=== PATIENT | female | born 1980 | race Caucasian/White ===

== ENCOUNTER 2020-05-31 16:27 | Outpatient (CLI) | payer BC, SELFPAY | END 2020-05-31 16:28 | disposition home or self-care (01) | LOC: CHSLAB 16:31 | PROVIDERS: PCP Family Medicine Adolescent Medicine; Visit Provider Obstetrics & Gynecology Gynecology | DX: R30.0 Dysuria (principal) | CPT/HCPCS: 87077; 87086; 87088; 87186 ==

== ENCOUNTER 2025-04-21 09:13 | Emergency (ER) | payer BC, SELFPAY ==
[2025-04-21 09:13] VITALS: BP 102/66; PULSE 78; RESP 20; TEMP 36.7; O2SAT 98
--- NOTE | 2025-04-21 09:15 | ED_ITS ---
HPI - URI/Sore Throat General Chief Complaint: Upper Respiratory Infection Stated Complaint: upper resp Source: patient Mode of arrival: ambulatory Limitations: no limitations History of Present Illness HPI Narrative: Patient is a 44-year-old female who just arrived from [place] last night back to this area. She was on an airplane for long period of time. She started to have upper respiratory complaints such as cough and congestion and headache yesterday. Symptoms more so started this morning. She has a sore throat. She has baseline low blood pressure. MD elicited complaint: cough, sore throat and nasal congestion Pertinent past history: other ( None) Onset (ago): day(s) (2) Consistency: constant Severity: mild Pain scale (0-10): 1 Description of mucous: clear Able to tolerate fluids by mouth: Yes Exacerbating factors: nothing Relieving factors: nothing Context: sick contacts ( on airplane) and recent travel Associated symptoms: myalgias, headache ( some neck pain), sore throat and other ( patient said symptoms are slightly better at this time in the emergency room) Treatments prior to arrival: none Related Data Home Medications ?Medication ?Instructions ?Recorded ?Confirmed ?Last Taken ?Type valacyclovir 1 gram tablet 500 mg PO DAILY 12/26/24 12/26/24 Unknown History Allergies Allergy/AdvReac Type Severity Reaction Status Date / Time No Known Allergies Allergy Verified 04/21/25 09:14 Review of Systems Review of Systems: All systems reviewed & are unremarkable except as noted in HPI and below Constitutional: Constitutional: Reports no additional constitutional complaints Eyes: Eyes: Reports no additional eye complaints ENT: Reports system reviewed and no additional complaints, except as documented Cardiovascular: Cardiovascular: Reports no additional cardiovascular complaints Respiratory: Respiratory: Reports no additional respiratory complaints Gastrointestinal: Gastrointestinal: Reports no additional gastrointestinal complaints Genitourinary: Genitourinary: Reports no additional female genitourinary complaints Musculoskeletal: Musculoskeletal: Reports no additional musculoskeletal complaints Integumentary/Breasts: Skin/Breast: Reports system reviewed and no additional complaints, except as docu Neurologic: Reports system reviewed and no additional complaints, except as documented Psychiatric: Psychiatric: Reports no additional psychiatric complaints Endocrine: Endocrine: Reports no additional endocrine complaints Hematologic/Lymphatic: Hematologic/Lymphatic: Reports no additional hematologic/lymphatic complaints Allergic/Immunologic: Allergic/Immunologic: Reports no additional allergic/immunologic complaints [facility] Social History Social History Smoking status: Never smoker Exam Const: General: ill appearing Nutritional Appearance: well nourished Orientation/consciousness: patient oriented x3 Limitations: no limitations HENMT: Head: normal to inspection Ears: external ears normal Face/Nose/Sinus: Normal external nose present Eyes: Conjunctivae: conjunctivae normal Pupils: Equal, round and reactive pupils present EOM: EOMs intact bilaterally Neck: Neck: normal visual inspection Chest: Chest palpation & inspection: normal inspection of the chest Resp: Effort & Inspection: normal respiratory effort and not labored Auscultation: clear to auscultation bilaterally and no crackles Cardio: Rate: regular rate Rhythm: regular rhythm Heart sounds: no murmurs GI: Inspection: non-distended GI Palp: Yes Soft to palpation and No Tenderness to palpation present (GI) Auscultation: normal bowel sounds : General: Yes bladder normal to palpation Back/Spine/Pelvis: Back: no CVA tenderness Skin: General skin exam: normal color Rashes: no rashes Wounds: no wounds Neuro: General: patient oriented x3, moves all extremities, no meningeal signs, no focal motor deficits and CN's II-XI intact bilaterally Cranial nerves: Yes Nystagmus not present Speech: normal speech Other: No neck rigidity Extrem: General: normal to inspection Psych: Mental Status: mental status grossly normal Affect: normal affect Attitude: cooperative Course Vital Signs Vital signs: Vital Signs Temperature 36.7 C 04/21/25 09:13 Pulse Rate 78 04/21/25 09:13 Respiratory Rate 20 04/21/25 09:13 Blood Pressure 102/66 04/21/25 09:13 Pulse Oximetry 98 04/21/25 09:13 Oxygen Delivery Room Air 04/21/25 09:13 Temperature 36.7 C 04/21/25 09:13 Pulse Rate 98 04/21/25 10:32 Respiratory Rate 20 04/21/25 10:32 Blood Pressure 96/61 L 04/21/25 10:32 Pulse Oximetry 100 04/21/25 10:32 Oxygen Delivery Room Air 04/21/25 10:32 MDM - URI/Sore Throat MDM Narrative Medical decision making narrative: patient is a 44-year-old female with upper respiratory type complaints since yesterday. She has been traveling since yesterday evening from [place]. We will do a strep and a COVID panel. Lab Data Attestation: I reviewed the patient's lab results. Labs: Lab Results 04/21/25 Range/Units 09:15 Influenza A (RT-PCR) Negative (Negative) Influenza B (RT-PCR) Negative (Negative) RSV (RT-PCR) Negative (Negative) SARS-CoV-2 RNA (RT-PCR) Positive A (Negative) Group A Strep (PCR) Not detected (Negative) Discharge Plan Discharge Clinical Impression: COVID-19 Patient Disposition: Home Condition: Stable Instructions: COVID-19 (Coronavirus Disease 2019) (ED) Additional Instructions: Please secluded yourself from outside environment and other people for 3-5 days. Make sure you do not have a fever and her feeling better to go out in public. Use Tylenol and ibuprofen as needed. Patient Language: Khmer Prescriptions: No Action valacyclovir 1 gram tablet 500 mg PO DAILY Follow-up/Referrals: Jocelyne Min, MACKENZIE, LDN [Dietitian/Abrasive Grinder] - Time of Disposition: 10:31
--- OUTSIDE RECORDS SUMMARY | 2025-04-21 09:18 | XMS_ITS | Clinical Summary ---
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 Dense breast tissue on mammogram 09/16/2019 Microcalcification of left breast on mammogram 0 08/18/2019 Usual hyperplasia of lactiferous duct, 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 Fibrocystic changes of right breast 05/24/2019 Resolved Problems Problem Noted Date Diagnosed Date Resolved Date Abnormal MRI, breast 05/05/2019 019 Breast signs and symptoms 05/05/2019 Abnormal mammogram 03/31/2019 9 Abnormal ultrasound of breast 03/31/2019 05/24/2019 Social History Tobacco Use Types Packs/Day Years Used Date Smoking Tobacco: Never Smokeless Tobacco: Never Alcohol Use Standard Drinks/Week Comments Yes 0 (1 standard drink = 0.6 oz pur e alcohol) Comments No Sex and Gender Information Value Date Recorded Sex Assigned at Not on file Legal Sex Female 9:15 AM CDT Gender Identity Not on file Sexual Orientation Not on file Last Filed Vital Signs Vital Sign Reading Time Taken Comments Blood Pressure 109/75 09/16/2019 1:16 PM CDT Pulse 92 09/16/2019 1:16 PM CDT Temperature 36.8 C (98.2 F) 09/16/2019 1:16 PM CDT Respiratory Rate - - Oxygen Saturation 98% 09/16/2019 1:16 PM CDT Inhaled Oxygen Concentration - - Weight 65.6 kg (144 lb 9.6 oz) 09/16/2019 1:16 P M CDT Height 167.6 cm (5' 6) 09/16/2019 1:16 PM CDT Body Mass Index 23.34 09/16/2019 1:16 PM CDT Plan of Treatment Health Maintenance Due Date Last Done Comments DTAP/TDAP/TD VACCINES (1 - Tdap) 1997 HEPATITIS B VACCINES (1 of 3 - 19+ 3-dose series) 1997 HPV/Cotest (21-29) 1999 CERVICAL CANCER SCREENING 2008 HPV/Cotest (30-65) 2008 PAP SMEAR 2008 BREAST CANCER SCREENING 08/04/2020 08/04/20 19, 02/03/2019 COLORECTAL SCREENING 2023 Colorectal Cancer Screening 2023 FIT-DNA Q 3 years 2023 FIT/FOBT Q 1 year 2023 Flex Sig/CT Colonography Q 5 years 2023 INFLUENZA VACCINE (#1) 2024 HPV VACCINES Aged Out No longer eligi ble based on patient's age to complete this topic Procedures Procedure Name Priority Date/Time Associated Diagnosis Comments MAMMO DIAG UNI LEFT 3D EDUARDA W OR WO CAD Routine 08/04/2019 Abnormal mammogram from Last 3 Months or Most Recently Relevant to Health Maintenance Results * MAMMO DIAG UNI LEFT 3D EDUARDA W OR WO CAD (08/04/2019) Anatomical Region Laterality Modality Breast Left Mammography Cinthia Geiger DO MAMMO ORDERABLES Edited Res ult - Final from Last 3 Months or Most Recently Relevant to Health Maintenance Insurance BCBS BLUE ACCESS/TRUE BLUE PPO Care Teams Rotary Envelope Machine Operator Relationship Specialty Start Date End Date Yordy Patel MD PCP - General Family Practice 02/24/19
--- OUTSIDE RECORDS SUMMARY | 2025-04-21 09:18 | XMS_ITS | Clinical Summary ---
Author Organization [facility] Address [address] [place] [address] Care Team Providers Care Extractions Technologist Name Role Phone Yordy Patel MD Primary Care Provider + Source Comments [facility],non-owned Affiliates and Associated Physician Practices is amultiple site organization consisting of ambulatory clinics and hospital sitesin [place], [place], [place] and [place]. This disclosure is being madepursuant to the Care Everywhere program and may not contain all information available regarding this patient. Last updated 18.[facility] Allergies No known active allergies Medications * Be aware that medications may not be up to date on this document. Alwaysverify current medications with the patient. vitamin D, ergocalciferol, (DRISDOL) 1.25 MG (98386 UT) capsule ORAL TAKE ONE CAPSULE 2 TIMES A WEEK WITH FOOD 03/07/2021 Active cetirizine (ZYRTEC) 10 MG tablet Take 1 (one) tablet by mouth once daily Active Multiple Vitamins-Minera ls (WOMENS 50+ MULTI VITAMIN/MIN PO) Acti ve Family History Medical History Relation Name Comments Cancer - Breast Maternal Grandmother Relation Name Status Comments Maternal Grandmother Social History Tobacco Use Types Packs/Day Years Used Date Smoking Tobacco: Never Smokeless Tobacco: Never Tobacco Cessation:Counseling Given: Not Answered Alcohol Use Standard Drinks/Week Comments Yes 0 (1 standard drink = 0.6 oz pur e alcohol) Comments No Sex and Gender Information Value Date Recorded Sex Assigned at Not on file Legal Sex Female 4:35 PM CDT Gender Identity Not on file Sexual Orientation Not on file Last Filed Vital Signs Vital Sign Reading Time Taken Comments Blood Pressure 102/65 08/18/2024 11:24 AM CDT Pulse 76 08/18/2024 11:24 AM CDT Temperature 36.1 C (97 F) 08/18/2024 11:24 AM CDT Respiratory Rate 18 07/06/2023 11:38 AM CDT Oxygen Saturation 98% 08/18/2024 11:24 AM CDT Inhaled Oxygen Concentration - - Weight 65.8 kg (145 lb) 08/18/2024 11:24 AM CDT Height 167.6 cm (5' 6) 08/18/2024 11:24 AM CDT Body Mass Index 23.4 08/18/2024 11:24 AM CDT Plan of Treatment Upcoming Encounters Date Type Department Care Team (Late st Contact Info) Description 05/22/2025 7:45 AM CDT Appointment [address] [address] Emma Mitchell MD [address] [place] [phone] 05/22/2025 8:00 AM CDT Appointment [address] [address] Emma Mitchell MD [facility] [phone] 05/22/2025 9:30 AM CDT Office Visit [facility] - General Surgery [address] [place] [phone] Emma Mitchell MD [facility] [phone] Health Maintenance Due Date Last Done Comments COLOGUARD (AGES 45-75) - COLON CA SCREENING 1978 COLON MONITORING 1978 COLONOSCOPY - COLON CA SCREENING 1978 CT COLONOGRAPHY - COLON CA SCREENING 1978 Colorectal Cancer Screening 1978 FIT - COLON CA SCREENING 1978 FLEX SIG - COLON CA SCREENING 1978 LIPID TESTING 1978 PAP SMEAR 1978 HIV SCREENING 1993 HEPATITIS C SCREENING 09/08/1996 DTAP/TDAP/TD VACCINES (1 - Tdap) 1997 HEPATITIS B VACCINE (1 of 3 - 19+ 3-dose series) 1997 COVID-19 VACCINE (1 - season) 2024 DEPRESSION SCREENING 11/23/2024 INFLUENZA VACCINE (Season Ended) 2025 MAMMOGRAM 01/04/2026 01/04/2024, 11/24, 12/12/2021, Additional history exists ZOSTER VACCINE (1 of 2) 2028 HIB VACCINE Aged Out No longer eligi ble based on patient's age to complete this topic HPV VACCINE Aged Out No longer eligi ble based on patient's age to complete this topic MENINGOCOCCAL (Group B) VACCINE SHARED DECISION-MAKING Aged Out No longer eligible based on patient's age to complete this topic MENINGOCOCCAL GROUPS A/C/Y/W VACCINE Aged Out No longer eligible based on patient's age to complete this topic PNEUMOCOCCAL VACCINE Aged Out No long er eligible based on patient's age to complete this topic Procedures Procedure Name Priority Date/Time Associated Diagnosis Comments MAMMO BILAT SCREENING W EDUARDA Routine 01/04/2024 9:40 AM SAS PROGRAMMER Increased risk of breast cancer from Last 3 Months or Most Recently Relevant to Health Maintenance Results * MAMMO BILAT SCREENING W EDUARDA (01/04/2024 9:40 AM SAS PROGRAMMER) Anatomical Region Laterality Modality Breast Bilateral Mammography 01/04/2024 9:42 AM SAS PROGRAMMER Impressions 01/04/2024 9:56 AM SAS PROGRAMMER : Benign mammogram, without evidence of malignancy. Dense breast parenchyma. RECOMMENDATION: 1. Screening mammography in one year, pending no interval breast concerns. 2. Given the elevated lifetime risk of developing breast cancer of greater than 20%, annual supplemental screening breast MRI (or complete breast ultrasound) is recommended. Patient is undergoing complete breast ultrasound today and please refer to that separate report. Dr. Rainey discussed results with patient at time of exam. Patient has an appointment with Dr. Mitchell in the breast clinic today. OVERALL ASSESSMENT: BI-RADS CATEGORY 2: BENIGN. > Interpreting Provider: Prerna Rainey MD on 01/04/2024 9:56 AM Narrative 01/04/2024 9:56 AM SAS PROGRAMMER EXAMINATIONS: BILATERAL DIGITAL SCREENING MAMMOGRAM AND BILATERAL BREAST TOMOSYNTHESIS WITH CAD LOCATION: [facility] EXAM DATE: 01/04/2024 HISTORY: Screening. RISK ASSESSMENT CALCULATION: Patient completed a breast cancer risk assessment during her appointment 12/18/2022. Based upon the information she provided and her mammographic breast density, her lifetime risk of developing breast cancer is 22 % (Average Risk <15%; Intermediate / Moderate Risk 15-19%; High Risk > 20%). The [employer] recommends annual screening breast MRI in addition to mammograms for women who have a 20% or greater lifetime risk of developing breast cancer. Patient is undergoing supplemental screening today with complete breast ultrasound and please refer to that separate report. Of note, as our risk assessment tablets are undergoing an upgrade, a more recent risk assessment was not performed today. Risk assessment based upon the Tyrer-Cuzick v8 model. COMPARISON: Comparison is made to prior mammograms back to 2014. TECHNIQUE: Tomosynthesis (3D) and reconstructed synthetic 2-D images acquired and reviewed in the bilateral craniocaudal and mediolateral oblique projections. A total of 6 images obtained. Computer-aided detection (CAD) was utilized. BREAST PARENCHYMAL COMPOSITION: Category D: The breasts are extremely dense which lowers the sensitivity of mammography. FINDINGS: There are no suspicious findings or evidence of malignancy on mammography. Biopsy clips noted bilaterally as well as bilateral breast calcifications. There is no significant change from the prior studies. us Emma Mitchell MD MAMMO ORDERABLES Final Resu lt from Last 3 Months or Most Recently Relevant to Health Maintenance Insurance ANTHEM ANTHEM Care Teams Extractions Technologist Relationship Specialty Start Date End Date Yordy Patel MD [address] [place] [id number] PCP - General Family Medicine 04/28/19
--- OUTSIDE RECORDS SUMMARY | 2025-04-21 09:18 | XMS_ITS | Clinical Summary ---
Author Organization [facility] Address [address] [place] [address] Phone Care Team Providers Care Drawer In Name Role Phone Yordy Patel MD Primary Care Prov ider Allergies No known active allergies Medications No known medications Active Problems No known active problems Social History Tobacco Use Types Packs/Day Years Used Date Smoking Tobacco: Never Assessed Comments Unknown Sex and Gender Information Value Date Recorded Sex Assigned at Not on file Legal Sex Female 6:58 PM CONCRETE GUN OPERATOR Gender Identity Not on file Sexual Orientation Not on file Obstetrics History Last Filed Vital Signs Vital Sign Reading Time Taken Comments Blood Pressure 106/64 07/25/2024 6:39 PM CDT Pulse 71 07/25/2024 6:39 PM CDT Temperature 36.8 C (98.3 F) 07/25/2024 6:39 PM CDT Respiratory Rate 18 07/25/2024 6:39 PM CDT Oxygen Saturation 97% 07/25/2024 6:39 PM CDT Inhaled Oxygen Concentration - - Weight 67.6 kg (149 lb) 07/25/2024 6:39 PM CDT Height 167.6 cm (5' 6) 07/25/2024 6:39 PM CDT Body Mass Index 24.05 07/25/2024 6:39 PM CDT Plan of Treatment Health Maintenance Due Date Last Done Comments Cervical Cancer Screening 1978 Colon Cancer Screening-Colonoscopy 1978 Depression Screening 1978 Hepatitis C Screening 1978 DTaP/Tdap/Td Vaccine (1 - Tdap) 1989 Hepatitis B Screening 1996 Regular Well Visit/Exam 18-64 1996 Breast Cancer Screening-Mammogram 01/04/2025 01/04/2024, 12/18/2022, 12/12/2021, Additional history exists Influenza Vaccine (Season Ended) 2025 HPV Vaccines Aged Out No longer eligi ble based on patient's age to complete this topic Pneumococcal vaccine <65 Aged Out No longer eligible based on patient's age to complete this topic Insurance [employer] [facility] EPO [employer] ACCESS Care Teams Drawer In Relationship Specialty Start Date End Date Yordy Patel MD [address] [place] [address] PCP - General Family Medicine 07/25/24
--- OUTSIDE RECORDS SUMMARY | 2025-04-21 09:18 | XMS_ITS | Referral Summary ---
Author Organization [facility] Address [address] [place] [address] Phone Care Team Providers Care Medical Front Desk Coordinator Name Role Phone Yordy Patel MD Primary Care Prov ider Allergies No known active allergies Medications No known medications Active Problems No known active problems Social History Tobacco Use Types Packs/Day Years Used Date Smoking Tobacco: Never Assessed Comments Unknown Sex and Gender Information Value Date Recorded Sex Assigned at Not on file Legal Sex Female 6:58 PM COLLECTIONS AGENT Gender Identity Not on file Sexual Orientation [...] 07/25/2024 6:39 PM CDT Plan of Treatment Not on file Insurance [facility] EPO ANTH ACCESS Care Teams Medical Front Desk Coordinator Relationship Specialty Start Date End Date Yordy Patel MD [address] [place] [address] PCP - General Family Medicine 07/25/24
[2025-04-21 09:51] LABS: Strep Group A RT-PCR NOT DETECTED (Negative)
--- OUTSIDE RECORDS SUMMARY | 2025-04-21 09:57 | XMS_ITS | Clinical Summary ---
Author Organization [facility] Address [address] [place] [address] Care Team Providers Care Slab Inspector Name Role Phone Yordy Patel MD Primary Care Provider +1- [phone] Allergies No known active allergies Medications No [...] BCBS BLUE ACCESS/TRUE BLUE PPO Care Teams Slab Inspector Relationship Specialty Start Date End Date Yordy Patel MD PCP - General Family Practice 02/24/19
--- OUTSIDE RECORDS SUMMARY | 2025-04-21 09:57 | XMS_ITS | Referral Summary ---
Author Organization [facility] Address [address] [place] [address] Phone Care Team Providers Care Assistant Professor Of Anthropology Name Role Phone Yordy Patel MD Primary Care Prov ider Allergies No known active allergies Medications No known medications Active Problems No known active problems Social History Tobacco Use Types Packs/Day Years Used Date Smoking Tobacco: Never Assessed Comments Unknown Sex and Gender Information Value Date Recorded Sex Assigned at Not on file Legal Sex Female 6:58 PM SORORITY MOTHER Gender Identity Not on file Sexual Orientation [...] Plan of Treatment Not on file Insurance [facility] EPO ANTH ACCESS Care Teams Assistant Professor Of Anthropology Relationship Specialty Start Date End Date Yordy Patel MD [address] [place] [address] PCP - General Family Medicine 07/25/24
--- OUTSIDE RECORDS SUMMARY | 2025-04-21 09:57 | XMS_ITS | Clinical Summary ---
Author Organization [facility] Address [address] [place] [address] Care Team Providers Care Tire Manager Name Role Phone Yordy Patel MD Primary Care Provider + Source Comments [facility],non-owned Affiliates and Associated Physician Practices is amultiple site organization consisting of ambulatory clinics and hospital sitesin [place], [place], [place] and [place]. This disclosure is being madepursuant to the Care Everywhere program and may not contain all information available regarding this patient. Last updated 18.[facility] Allergies No known active allergies Medications * Be aware that medications may not be up to date on this document. Alwaysverify current medications with the patient. vitamin D, ergocalciferol, (DRISDOL) 1.25 MG (46604 UT) capsule ORAL TAKE ONE CAPSULE 2 [...] Info) Description 05/22/2025 7:45 AM CDT Appointment [address] [address] Emma Mitchell MD [address] [place] [phone] 05/22/2025 8:00 AM CDT Appointment [address] [address] Emma Mitchell MD [facility] [phone] 05/22/2025 9:30 AM CDT Office Visit [facility] - General Surgery [address] [place] [phone] Emma Mitchell MD [facility] [phone] Health Maintenance Due Date Last Done Comments [...] SCREENING W EDUARDA Routine 01/04/2024 9:40 AM SHEET ROCK APPLIER Increased risk of breast cancer from Last 3 Months or Most Recently Relevant to Health Maintenance Results * MAMMO BILAT SCREENING W EDUARDA (01/04/2024 9:40 AM SHEET ROCK APPLIER) Anatomical Region Laterality Modality Breast Bilateral Mammography 01/04/2024 9:42 AM SHEET ROCK APPLIER Impressions 01/04/2024 9:56 AM SHEET ROCK APPLIER : Benign mammogram, without evidence of malignancy. [...] 01/04/2024 9:56 AM Narrative 01/04/2024 9:56 AM SHEET ROCK APPLIER EXAMINATIONS: BILATERAL DIGITAL SCREENING MAMMOGRAM AND BILATERAL BREAST TOMOSYNTHESIS WITH CAD LOCATION: [facility] EXAM DATE: 01/04/2024 HISTORY: Screening. RISK ASSESSMENT CALCULATION: Patient completed a breast cancer risk assessment during her appointment 12/18/2022. Based upon the information she provided and her mammographic breast density, her lifetime risk of developing breast cancer is 22 % (Average Risk <15%; Intermediate / Moderate Risk 15-19%; High Risk > 20%). The [employer] [employer] recommends annual screening breast MRI [...] Health Maintenance Insurance ANTHEM ANTHEM Care Teams Tire Manager Relationship Specialty Start Date End Date Yordy Patel MD [address] [place] [id number] PCP - General Family Medicine 04/28/19
--- OUTSIDE RECORDS SUMMARY | 2025-04-21 09:57 | XMS_ITS | Clinical Summary ---
Author Organization 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
[2025-04-21 10:23] LABS: Influenza A QL RT-PCR Negative (Negative); Influenza B QL RT-PCR Negative (Negative); RSV RNA, RT-PCR Negative (Negative); SARS-CoV-2 RNA PCR Positive (Negative)
[2025-04-21 10:32] VITALS: BP 96/61; PULSE 98; RESP 20; O2SAT 100
== END 2025-04-21 10:32 | disposition home or self-care (01) ==
PROVIDERS: Emergency Provider Emergency Medicine; PCP Family Medicine Adolescent Medicine
DX: U07.1 COVID-19 (principal)
CPT/HCPCS: 87637; 87651; 99283